=== PATIENT | female | born 1960 | race Caucasian/White ===

== ENCOUNTER 2019-07-11 10:56 | Day surgery (SDC) | payer MEDICARE, OTHER ==
[~2019-07-11] VITALS: Ht 149.9 cm; Wt 63.0 kg
[2019-07-11] VITALS (10 sets, daily range): BP systolic 118–156; BP diastolic 62–93; PULSE 68–86; RESP 16–22; Ht 149.9 cm; Wt 63.0 kg
[~2019-07-11 10:56] MED LIST: CITA20TA11 PO; ESCI20TA; LEVO125T71 PO; PROP1TAB; THYROID
--- NOTE | 2019-07-11 11:55 | PREAC ---
Date/Time of Note Date/Time of Note DATE: 07/11/19 TIME: 11:53 Anesthesia Eval and Record Evaluation Time Pre-Procedure Interview DATE: 07/11/19 TIME: 11:53 Age 59 Sex female NPO: 8 hrs Preoperative diagnosis Left axillary mass Planned procedure Excision of mass Past Medical History Past Medical History: Includes Endo: Hypothyroid Pulm: Smoking Hx GI: Other (H/O colon CA S/P hemicolectomy) Surgery & Anesthesia Issues No known issue Meds Anticoagulation: No Beta Ailin within 24 hr: No Reason Beta Ailin not given: Pt. not on B-Ailin Reported Medications Citalopram Hydrobromide* (Celexa*) 20 Mg Tablet, 20 MG PO DAILY, #30 TAB 07/11/19 Levothyroxine Sodium* (Levoxyl*) 125 Mcg Tablet, 125 MCG PO BEFORE BREAKFAST, #30 TAB 07/11/19 Discontinued Reported Medications Propoxyphene/Acetaminophen (Darvocet-N 100 Tablet) 1 Tab Tablet 10/05/10 Escitalopram Oxalate* (Lexapro*) 20 Mg Tablet 10/05/10 [Thyroid] No Conflict Check 10/05/10 Meds reviewed: Yes Allergies Coded Allergies: No Known Allergy (Unverified , 07/11/19) Allergies Reviewed: Yes Labs/Studies Labs Reviewed: Reviewed by anesthesiologist test: N/A Pre-procedure Exam Airway: Adequate mouth opening Mallampati: Mallampati II Teeth: Normal Lung: Normal Heart: Normal ASA Physical Status ASA physical status: 2 Emergency: None Planned Anesthetic General/MAC: ETT, LMA Planned Pain Management Parenteral pain med Pre-operative Attestations Prior to commencing anesthesia and surgery, the patient was re-evaluated, there was verification of: *The patient's identity *The results of appropriate recent lab work and preoperative vital signs *The above evaluation not changing prior to induction *Anesthetic plan, risk benefits, alternative and complications discussed with patient/family; questions answered; patient/family understands, accepts and wishes to proceed. IRENE PERALTA MD Jul 11, 2019 11:55
--- NOTE | 2019-07-11 12:07 | HPN ---
Date/Time of Note Date/Time of Note DATE: 07/11/19 TIME: 12:07 Interval H&P Admission Note Pt. seen H&P reviewed: No system changes ALIE AMIN MD Jul 11, 2019 12:07
[2019-07-11] MEDS ORDERED: LIDOCAINE 1%/EPI 30 ML INJ ONE (12:13)
[2019-07-11] MEDS ORDERED: BUPIVACAINE 0.5% (SDV) 30 ML INJ ONE (12:13)
[2019-07-11] MEDS ORDERED: LIDOCAINE 2% (SDV) 5 ML INJ ONE (12:29)
[2019-07-11] MEDS ORDERED: METOCLOPRAMIDE 10 MG INJ ONE (12:29)
[2019-07-11] MEDS ORDERED: MEPERIDINE 100 MG INJ ONE (12:29)
[2019-07-11] MEDS ORDERED: CEFAZOLIN 1 GM INJ ONE (12:29)
[2019-07-11] MEDS ORDERED: PROPOFOL 20 ML ONE (12:29)
[2019-07-11] MEDS ORDERED: ONDANSETRON 4 MG INJ ONE (12:29)
[2019-07-11] MEDS ORDERED: MEPERIDINE 25 MG INJ IV PRN (13:00)
[2019-07-11] MEDS ORDERED: OXYCODONE/ACETAMINOPHEN (5/325) TAB PO PRN ×2 (13:00)
[2019-07-11] MEDS ORDERED: HYDROmorphONE 1 MG/5 ML IV SYRINGE IV PRN ×3 (13:00)
[2019-07-11] MEDS ORDERED: DIPHENHYDRAMINE 50 MG INJ IV PRN (13:00)
[2019-07-11] MEDS ORDERED: FENTAnyl 50 MCG/ML VIAL IV PRN ×3 (13:00)
[2019-07-11] MEDS ORDERED: MIDAZOLAM 1 MG/ML 2 ML INJ IV PRN (13:00)
[2019-07-11] MEDS ORDERED: EPHEDrine 25 MG/5 ML SYG IV PRN (13:00)
[2019-07-11] MEDS ORDERED: ONDANSETRON 4 MG INJ IV PRN ×2 (13:00→13:30)
[2019-07-11] MEDS ORDERED: LABETALOL HCL 20MG INJ IV PRN (13:00)
[2019-07-11] MEDS ORDERED: METOCLOPRAMIDE 10 MG INJ IV PRN (13:00)
[2019-07-11] MEDS ORDERED: hydrALAzine 20 MG INJ IV PRN (13:00)
--- NOTE | 2019-07-11 13:22 | OPR ---
Date/Time of Note Date/Time of Note DATE: 07/11/19 TIME: 13:18 Operative Report Procedure Date: Jul 11, 2019 Preoperative Diagnosis Left axillary lesion Postoperative Diagnosis Left axillary lesion, possible lymph node, 2 x 1 cm Operation/Procedure Performed 1. Excision of left axillary lesion, 2 x 1 cm 2. Local anesthetic injection, [id number] Surgeon Alie Jimenez MD [employer] Amalia Vences NP Anesthesia Type: general (Per LMA and local) Anesthesiologist: IRENE PERALTA MD Estimated Blood Loss: 0 - 10 ml's Transfusion none Specimen Lesion Grafts/Implants none Tubes/Drains None Complications none Pt Condition Post Procedure: stable Disposition: PACU Indications Growing lesion in the left axilla. Here for excisional biopsy. Risks include but are not limited to bleeding, infection, abscess, seroma, damage to surrounding structures including neurovascular bundle, left upper extremity lymphedema, chronic pain, need for re-operations or further surgeries, NE, stroke, PE, DVT, pneumonia, organ failures, or even . Procedure Description Patient was brought in and placed supine in the operating table. SCDs were placed. Preoperative antibiotics administered. After induction of anesthesia all pressure points were well-padded and she was prepped and draped in usual sterile fashion. Timeout was performed. Local anesthetic injection was done at the surgical site. Incision was made into the axilla and the incision was extended into the subcutaneous tissue and the rounded dark lesion was identified. This was circumferentially excised and clamped and suture-ligated and the lesion was sent to pathology. There was complete hemostasis. Wound was irrigated with warm saline to clear suctioning fluid. Wound was closed in 2 layers of 2-0 Vicryl's deep followed by 4-0 Monocryl subcuticular. Dermabond was applied. Patient was extubated transferred to recovery in stable condition and all counts were correct at the end of the operation x2. Copies To: CC: PASHA GODDARD MD ; ALIE JIMENEZ MD Jul 11, 2019 13:22
[2019-07-11] MEDS ORDERED: IBUPROFEN 600 MG TAB PO PRN (13:30)
[2019-07-11] MEDS ORDERED: ACETAMINOPHEN 325 MG TAB PO PRN (13:30)
[2019-07-11] MEDS ORDERED: HYDROCODONE/APAP (5/325) TAB PO PRN (13:30)
--- NOTE | 2019-07-11 14:16 | PAC ---
Date/Time of Note Date/Time of Note DATE: 07/11/19 TIME: 14:16 Post-Anesthesia Notes Post-Anesthesia Note Last documented vital signs Vital Signs Date Temp Pulse Resp B/P (MAP) Pulse Ox O2 O2 Flow FiO2 Time Delivery Rate 07/11/19 98.0 68 17 128/68 95 Room Air 13:42 (88) Activity: WNL Respiratory function: WNL Cardiovascular function: WNL Mental status: Baseline Pain reasonably controlled: Yes Hydration appropriate: Yes Nausea/Vomiting absent: Yes IRENE PERALTA MD Jul 11, 2019 14:16
== END 2019-07-11 14:25 | disposition home or self-care (01) ==
LOC: SDS 10:56
PROVIDERS: ATTEND Surgery
DX: L90.5 Scar conditions and fibrosis of skin (principal); M79.81 Nontraumatic hematoma of soft tissue; R20.8 Other disturbances of skin sensation; E03.9 Hypothyroidism, unspecified; F17.200 Nicotine dependence, unspecified, uncomplicated
CPT/HCPCS: 11403; 12031; 88305; J0690; J2175; J2405; J2765